=== PATIENT | male | born 1955 | race Caucasian/White ===

== ENCOUNTER 2018-10-24 19:00 | Emergency (ER) | payer OTHER ==
[~2018-10-24] VITALS: Ht 167.6 cm; Wt 75.3 kg
[~2018-10-24 19:00] MED LIST: AMLODIPINE BESY10 MG PO; FLAGYL250 MG PO; HYDRALAZINE HCL25 MG PO; LEVOTHYROXINE50 MCG PO; LISINOPRIL2.5 MG PO; METFORMIN HCL500 MG PO
[2018-10-24 20:19] LABS: BASOPHILS # (AUTO) 0.1 (0.0-0.1); BASOPHILS % 0.8 % (0.0-1.0); EOSINOPHILS # (AUTO) 0.3 (0.0-0.4); EOSINOPHILS % 2.8 % (0.0-6.0); HEMATOCRIT 37.1 % (38.2-49.6); HEMOGLOBIN 12.2 g/dL (14.0-18.0); LYMPHOCYTES # (AUTO) 1.7 (1.0-3.2); LYMPHOCYTES % 16.2 % (18.0-39.1); MEAN CORPUSCULAR HEMOGLOBIN 28.2 pg (28-32); MEAN CORPUSCULAR HGB CONC 32.9 g/dL (31-35); MEAN CORPUSCULAR VOLUME 85.9 fL (81-99); MONOCYTES # (AUTO) 0.7 (0.2-0.8); MONOCYTES % 6.5 % (4.4-11.3); NEUTROPHILS # (AUTO) 7.8 (2.1-6.9); NEUTROPHILS % 73.2 % (38.7-80.0); PLATELET COUNT 327 x10e3/uL (140-360); RED BLOOD COUNT 4.32 x10e6/uL (4.3-5.7); RED CELL DISTRIBUTION WIDTH 12.8 % (11.7-14.4)
[2018-10-24 20:38] LABS: ALBUMIN 4.2 g/dL (3.5-5.0); ALBUMIN/GLOBULIN RATIO 1.3 (0.8-2.0); ANION GAP 16.7 mmol/L (8-16); CALCIUM 8.7 mg/dL (8.4-10.2); CREATININE, SERUM 1.48 mg/dL (0.72-1.25); POTASSIUM 3.7 mmol/L (3.5-5.1)
[2018-10-24] MEDS ORDERED: DIATRIZOATE MEGL/DIATRIZOA SOD 30 ML BTL PO ONE (20:54)
[2018-10-24] MEDS ORDERED: SODIUM CHLORIDE 0.9% 1000ML 1,000 ML IV ONE (21:00)
--- NOTE | 2018-10-24 22:34 | Diagnostic Imaging Report ---
EXAM: CT ABDOMEN/PELVIS W DATE: 10/24/2018 8:49 PM INDICATION: Rectal bleeding, diarrhea COMPARISON: None TECHNIQUE: The abdomen and pelvis were scanned using a multidetector helical scanner. Coronal and sagittal reformations were obtained. CT low dose techniques were utilized, as applicable. IV Contrast: 100 ml Isovue 300/370 FINDINGS: LOWER THORAX: No consolidations LIVER/BILIARY: Probable hepatic steatosis. No masses. No ductal dilatation. GALLBLADDER: Unremarkable SPLEEN: Unremarkable PANCREAS: Unremarkable ADRENALS: Indeterminate bilateral adrenal nodules measuring up to 2 cm on the right and 1.2 cm on the left. KIDNEYS: Mild renal scarring. Incidental left renal cyst and bilateral too small to characterize hypodensities. No hydronephrosis. GI TRACT: Diverticulosis. No wall thickening or obstruction. Diffuse fluid filled colon extending to the rectum. VESSELS: Mild to moderate atherosclerotic changes. PERITONEUM/RETROPERITONEUM: No free air or fluid LYMPH NODES: No lymphadenopathy REPRODUCTIVE ORGANS/BLADDER: The lobe hypertrophy of the prostate. Mild circumferential bladder thickening could reflect chronic outlet obstruction SOFT TISSUES: Unremarkable BONES: No suspicious bone lesions. IMPRESSION: 1. Findings which can be seen with colitis. 2. Diverticulitis without acute diverticulitis. 3. Changes of BPH with findings suggestive of chronic bladder outlet obstruction. Signed by: Dr Mikayla Baker MD on 10/24/2018 10:31 PM
[2018-10-25] MEDS ORDERED: METRONIDAZOLE 500 MG TAB PO SCH (00:15)
[2018-10-25] MEDS ORDERED: CIPROFLOXACIN 500 MG TAB PO SCH (00:15)
[2018-10-25] MEDS ORDERED: IOPAMIDOL 370 MG/ML 200 ML INFUS..BTL INJ ONE (00:53)
[2018-10-25] MEDS ORDERED: SODIUM CHLORIDE 0.9% 50ML 50 ML ONE (00:53)
[2018-10-25 01:09] VITALS: BP 109/80
== END 2018-10-25 01:11 | disposition home or self-care (01) ==
LOC: ER 19:00
DX: R10.84 Generalized abdominal pain (principal); K52.9 Noninfective gastroenteritis and colitis, unspecified
CPT/HCPCS: 36415; 74177; 80053; 85025; 99283; J7030; Q9663; Q9967

== ENCOUNTER 2020-01-16 00:15 | Observation (INO) | payer MEDICARE, OTHER ==
[~2020-01-16] VITALS: Ht 167.6 cm; Wt 68.5 kg
[2020-01-16] VITALS (7 sets, daily range): BP systolic 114–144; BP diastolic 71–86
--- OUTSIDE RECORDS SUMMARY | 2020-01-16 00:18 | XMS REPORT ---
[facility] Address Unknown Phone Unavailable Care Team Providers Care Feed Adviser Name Role Phone Virgie JURADO Unavailable Unavailable Problems This patient has no known problems. Allergies, Adverse Reactions, Alerts This patient has no known allergies or adverse reactions. Medications This patient has no known medications. Results Test Description Test Time Test Comments Text Results Atomic Results Result Comments CT ABDOMEN/PELVIS W 2018-10-24 22:24:00 [place] [address] Patient Name: ENZO CELESTIN MR #: [id number] : 1955 Age/Sex: 63/M Req #: [id number] Adm Physician: Ordered by: SLICK JURADO MD Report #: [id number] Location: ER Room/Bed: Procedure: [id number] CT/CT ABDOMEN/PELVIS W Exam Date: Exam Time: REPORT STATUS: Signed EXAM: CT ABDOMEN/PELVIS W DATE: 10/24/2018 8:49 PM INDICATION: Rectal bleeding, diarrhea COMPARISON: None TECHNIQUE: The abdomen and pelvis were scanned using a multidetector helical scanner. Coronal and sagittal reformations were obtained. CT low dose techniques were utilized, as applicable. IV Contrast: 100 ml Isovue 300/370 FINDINGS: LOWER THORAX: No consolidations LIVER/BILIARY: Probable hepatic steatosis. No masses. No ductal dilatation. GALLBLADDER: Unremarkable SPLEEN: Unremarkable PANCREAS: Unremarkable ADRENALS: Indeterminate bilateral adrenal nodules measuring up to 2 cm on the right and 1.2 cm on the left. KIDNEYS: Mild renal scarring. Incidental left renal cyst and bilateral too small to characterize hypodensities. No hydronephrosis. GI TRACT: Diverticulosis. No wall thickening or obstruction. Diffuse fluid filled colon extending to the rectum. VESSELS: Mild to moderate atherosclerotic changes. PERITONEUM/RETROPERITONEUM: No free air or fluid LYMPH NODES: No lymphadenopathy REPRODUCTIVE ORGANS/BLADDER: The lobe hypertrophy of the prostate. Mild circumferential bladder thickening could reflect chronic outlet obstruction SOFT TISSUES: Unremarkable BONES: No suspicious bone lesions. IMPRESSION: 1. Findings which can be seen with colitis. 2. Diverticulitis without acute diverticulitis. 3. Changes of BPH with findings suggestive of chronic bladder outlet obstruction. Signed by: Dr Daphne Baker MD on 10/24/2018 10:31 PM Dictated By: DAPHNE BAKER MD 30 Transcribed By: MAGALY on 10/24/182230 COPY TO: SLICK JURADO MD
[2020-01-16 01:15] LABS: BASOPHILS % 0.5 % (0.0-1.0); EOSINOPHILS # (AUTO) 0.3 (0.0-0.4); EOSINOPHILS % 3.6 % (0.0-6.0); HEMOGLOBIN 11.5 g/dL (14.0-18.0); LYMPHOCYTES # (AUTO) 1.3 (1.0-3.2); LYMPHOCYTES % 15.7 % (18.0-39.1); MEAN CORPUSCULAR HEMOGLOBIN 28.5 pg (28-32); MEAN CORPUSCULAR HGB CONC 32.9 g/dL (31-35); MEAN CORPUSCULAR VOLUME 86.6 fL (81-99); MONOCYTES # (AUTO) 0.6 (0.2-0.8); MONOCYTES % 7.4 % (4.4-11.3); NEUTROPHILS # (AUTO) 5.9 (2.1-6.9); NEUTROPHILS % 72.4 % (38.7-80.0); PLATELET COUNT 331 x10e3/uL (140-360); RED BLOOD COUNT 4.04 x10e6/uL (4.3-5.7); RED CELL DISTRIBUTION WIDTH 13.6 % (11.7-14.4)
[2020-01-16 01:27] LABS: INR 0.87; PROTHROMBIN TIME 12.3 seconds (11.9-14.5)
[2020-01-16 01:28] LABS: PARTIAL THROMBOPLASTIN TIME 31.4 seconds (23.8-35.5)
[2020-01-16 01:37] LABS: ALBUMIN 3.9 g/dL (3.5-5.0); ALBUMIN/GLOBULIN RATIO 1.2 (0.8-2.0); ANION GAP 11.6 mmol/L (8-16); CALCIUM 8.8 mg/dL (8.4-10.2); CREATININE, SERUM 1.57 mg/dL (0.72-1.25); POTASSIUM 3.6 mmol/L (3.5-5.1)
[2020-01-16] MEDS: SODIUM CHLORIDE 0.9% 1000ML 1,000 ML IV SCH ×3 (03:40→20:14)
[2020-01-16] MEDS ORDERED: DEXTROSE 50% SYRINGE 50 ML IV PRN ×2 (03:45→18:30)
[2020-01-16] MEDS ORDERED: SIMVASTATIN40 MG PO (06:02)
--- NOTE | 2020-01-16 06:21 | NUR ---
NOTIFIED DR. Chani COLINDRES REGARDING CONSULT. NO NEW ORDER
--- NOTE | 2020-01-16 07:00 | NUR ---
BEDSIDE SHIFT REPORT RECEIVED FROM BRAKE RELINER NURSE. PT DENIES NEEDS AT THIS TIME.
[2020-01-16 07:25] LABS: HEMATOCRIT 34.9 % (38.2-49.6); HEMOGLOBIN 11.2 g/dL (14.0-18.0)
[2020-01-16 12:10] LABS: HEMOGLOBIN 10.7 g/dL (14.0-18.0)
[2020-01-16] MEDS ORDERED: PEG (High)/E-LYTE SOLN 4,000 ML BTL PO ONE (19:15)
[2020-01-16 19:52] LABS: HEMATOCRIT 32.3 % (38.2-49.6); HEMOGLOBIN 10.5 g/dL (14.0-18.0)
[2020-01-16] MEDS: HYDRALAZINE HCL 25 MG TAB PO SCH (20:10)
--- NOTE | 2020-01-16 20:36 | History and Physical ---
CHIEF COMPLAINT: Rectal bleeding. HISTORY OF PRESENT ILLNESS: A 64-year-old male, who has a history of hypertension, hypothyroidism, and type 2 diabetes including hyperlipidemia, reports having rectal bright red blood bleeding that began since Friday of this last week. The patient reports that when he uses the bathroom, he noticed some bright red blood. He said since then he has had multiple bright red blood per rectum. He denies any hemorrhoids. He did report having some black stool and he also reports having some Aleve taken at home occasion for pain. He denies using Aleve or any NSAIDs daily for chronic pain. Denies any hematemesis or hemoptysis. Denies any chest pain or any palpitations. No history of cardiac issues according to the patient. The patient is seen and evaluated at bedside on the medical floor. He is currently doing well with no other issues at this time. The patient reports he has never had a colonoscopy in the past. REVIEW OF SYSTEMS: Pertinent positive: Bright red blood per rectum, occasional black stool. The rest of 14-point review of systems are reviewed with the patient and are negative. ALLERGIES: NO KNOWN DRUG ALLERGIES. HOME MEDICATIONS: Metformin 500 mg p.o. b.i.d., amlodipine 10 mg daily, hydralazine 25 mg p.o. t.i.d., levothyroxine 50 mcg daily, lisinopril 5 mg daily, and simvastatin 40 mg daily. PAST MEDICAL HISTORY: Hypertension, type 2 diabetes, hypothyroidism, and hyperlipidemia. PAST SURGICAL HISTORY: Reports none. FAMILY HISTORY: Hypertension and diabetes. SOCIAL HISTORY: No drugs. No alcohol. Does not smoke. Good social support. PHYSICAL EXAMINATION: VITAL SIGNS: Temperature is 96.8, pulse is 79, respiratory rate is 18, blood pressure 134/74, and pulse ox 97% on room air. GENERAL: Not in acute distress. Alert and oriented x3. Cooperative on examination. HEENT: Head; normocephalic, atraumatic. Eyes; pupils are equal, round, and reactive to light bilaterally. Extraocular movements intact bilaterally. Throat; no evidence of erythema or exudates in the posterior pharynx. Has poor dentition. NECK: Supple. Good range of motion. PULMONARY: Clear to auscultation bilaterally. No wheezing, no rales, no rhonchi, no crackles appreciated. CARDIOVASCULAR: Positive S1 and S2. No murmurs, rubs, or gallops appreciated. ABDOMEN: Soft, nondistended, and nontender to palpation. Bowel sounds present. MUSCULOSKELETAL: Strength is 5/5 throughout. No evidence of any muscle deficits on examination. No weakness appreciated. NEUROLOGIC: Cranial nerves 2 through 12 grossly intact. No evidence of any neurological deficits on exam. SKIN: Intact. Warm to touch. Good cap refill. PSYCHIATRIC: Normal affect and mood. EXTREMITIES: No edema. Good range of motion throughout. LABORATORY FINDINGS: Show white count was 8.1, hemoglobin on admission 11.5, now down to 10.7, hematocrit is 33, platelets of 331, MCV is 86. Coagulation; PT 12, INR 0.87, and PTT 31.4. Chemistry; sodium 137, potassium 3.6, chloride 106, bicarb 23, anion gap of 11, BUN is 22, creatinine is 1.57, glucose is 164, and calcium is 8.8. Total bilirubin is 0.2, AST 13, ALT 10, and alkaline phosphatase 44. Total protein 7.1 and albumin 3.9. MICROBIOLOGY: None. IMAGING STUDIES: None. IMPRESSION: 1. Rectal bleeding, unknown etiology, could be secondary to hemorrhoids. 2. Hypertension. 3. Hyperlipidemia. 4. Hypothyroidism. 5. Type 2 diabetes. PLAN: At this time, his hemoglobin is stable. He is being monitored very closely. He is on IV Protonix. GI has been consulted. He is scheduled for colonoscopy, but may benefit from an EGD as well, as he reports occasional black stool, which could be likely lower GI bleeding more than upper, but we would like to see if GI would like to perform an upper EGD. He denies any abdominal pain or any gastritis. He does take Aleve at home. We are going to monitor his hemoglobin very closely. Resume same home medications. SCDs for DVT prophylaxis. Clear liquid diet and n.p.o. after midnight. MD MADELYN Dela Cruz/MODL /[id number]
--- NOTE | 2020-01-16 23:10 | NUR ---
DR. Chani COLINDRES DOING ROUND, NEW ORDERS RECEIVED. SEE EMR FOR LIST OF ORDERS
[2020-01-16] MEDS ORDERED: BISACODYL 5 MG TAB EC PO ONE ×2 (23:15→23:45)
[2020-01-17] VITALS (8 sets, daily range): BP systolic 119–143; BP diastolic 74–98
[2020-01-17] MEDS ORDERED: BISACODYL 5 MG TAB EC PO ONE (00:15)
[2020-01-17] MEDS: LEVOTHYROXINE SODIUM 50 MCG TAB PO SCH (05:08)
[2020-01-17 05:22] LABS: BASOPHILS % 0.5 % (0.0-1.0); EOSINOPHILS # (AUTO) 0.2 (0.0-0.4); EOSINOPHILS % 2.7 % (0.0-6.0); HEMATOCRIT 34.4 % (38.2-49.6); HEMOGLOBIN 10.9 g/dL (14.0-18.0); LYMPHOCYTES # (AUTO) 1.4 (1.0-3.2); LYMPHOCYTES % 19.5 % (18.0-39.1); MEAN CORPUSCULAR HGB CONC 31.7 g/dL (31-35); MEAN CORPUSCULAR VOLUME 88.4 fL (81-99); MONOCYTES # (AUTO) 0.5 (0.2-0.8); MONOCYTES % 6.7 % (4.4-11.3); NEUTROPHILS # (AUTO) 5.1 (2.1-6.9); NEUTROPHILS % 70.5 % (38.7-80.0); PLATELET COUNT 312 x10e3/uL (140-360); RED BLOOD COUNT 3.89 x10e6/uL (4.3-5.7); RED CELL DISTRIBUTION WIDTH 13.8 % (11.7-14.4)
[2020-01-17 05:42] LABS: ANION GAP 12.6 mmol/L (8-16); CALCIUM 9.4 mg/dL (8.4-10.2); CREATININE, SERUM 1.27 mg/dL (0.72-1.25); POTASSIUM 4.6 mmol/L (3.5-5.1)
[2020-01-17] MEDS ORDERED: CITRATE OF MAGNESIA 300ML BOTTLE PO ONE (06:00)
--- NOTE | 2020-01-17 07:00 | NUR ---
RECEIVED PATIENT AWAKE RESTING IN BED NO S/S OF DISTRESS. BED LOW, WHEELS LOCKED, SIDE RAILS X2, CALL LIGHT IN REACH WILL CONTINUE TO MONITOR PATIENT.
[2020-01-17] MEDS: SIMVASTATIN 40 MG TAB PO SCH (07:59)
[2020-01-17] MEDS: PANTOPRAZOLE 40 MG 10ML VIAL IV SCH (08:19)
[2020-01-17] MEDS: HYDRALAZINE HCL 25 MG TAB PO SCH ×3 (08:36→20:33)
[2020-01-17] MEDS: AMLODIPINE BESYLATE 10 MG TAB PO SCH (08:36)
[2020-01-17] MEDS: LISINOPRIL 2.5 MG TAB PO SCH (08:36)
[2020-01-17 12:02] LABS: HEMATOCRIT 34.6 % (38.2-49.6); HEMOGLOBIN 10.9 g/dL (14.0-18.0)
[2020-01-17] MEDS ORDERED: PROPOFOL IV EMULSION 10 MG/ML 50 ML VIAL ONE (14:08)
[2020-01-17] MEDS ORDERED: EPHEDRINE SULFATE INJ 50 MG/ML VIAL ONE (14:08)
[2020-01-17] MEDS ORDERED: MIDAZOLAM HCL 2 MG/2 ML VIAL ONE (14:18)
[2020-01-17] MEDS ORDERED: FENTANYL CITRATE/PF 100MCG/2 ML INJ ONE (14:18)
[2020-01-17] MEDS: SODIUM CHLORIDE 0.9% 1000ML 1,000 ML IV SCH (14:23)
--- NOTE | 2020-01-17 16:16 | NUR ---
PATIENT LEFT TO ENDOSCOPY AT THIS TIME VIA STRETCHER IN STABLE CONDITION.
--- NOTE | 2020-01-17 18:12 | NUR ---
PATIENT BACK FROM EGD AND COLONOSCOPY. NO S/S OF DISTRESS. PATIENT ON FULL LIQUID DIET. CALL LIGHT IN REACH, AT BEDSIDE, WILL CONTINUE TO MONITOR PATIENT.
[2020-01-17 18:57] LABS: HEMOGLOBIN 11.6 g/dL (14.0-18.0)
--- NOTE | 2020-01-17 19:17 | NUR ---
WALKING ROUNDS PERFORMED, RECEIVED PT LAYING SEMI FOWLERS IN BED, AAOX3, RR EVEN AND NON-LABORED, ON ROOM AIR. NO S/SX OF DISTRESS NOTED. LEFT PT LAYING SEMI FOWLERS IN BED, BED IN LOW LOCKED POSITION, SIDE RAILS UPX2, CALL LIGHT AND PHONE WITHIN REACH.
--- NOTE | 2020-01-17 20:01 | Operative Report ---
DATE OF PROCEDURE: 01/17/2020 SURGEON: Jake Roy MD PROCEDURES: EGD with biopsies and colonoscopy with hemoclipping. ADDITIONAL REFERRING PHYSICIAN: Dr. Webb. INDICATIONS FOR EGD: History of dark stools. INDICATION FOR COLONOSCOPY: Rectal bleeding. MEDICATIONS: The patient was done under MAC, please see anesthesiologist's note. PROCEDURE IN DETAIL: With the patient in the left lateral decubitus position, a flexible fiberoptic Olympus gastroscope was introduced into the esophagus under direct visualization without any difficulty. There was some short tongues of velvety red mucosa extending proximally from the GE junction and biopsies were obtained to rule out Lorenz. The scope was then advanced with ease into the stomach traversing a small hiatal hernia. Mucosa overlying the antrum and the body revealed some patchy erythema and [id number] edema, and biopsies were obtained and sent to stain for H. pylori. The pylorus was of normal contour and shape, was intubated with ease and the scope was advanced all the way to the second portion of the duodenum. Biopsies were obtained from approximately 3 mm nodule in the proximal second portion. Mucosa overlying the duodenal bulb grossly appeared to be within normal limits. The scope was then withdrawn back into the stomach and retroflexed, mucosa overlying the fundus and the cardia appeared to be within normal limits. The scope was then straightened out, it was subsequently withdrawn, and the patient tolerated the procedure well. IMPRESSION: 1. Rule out Lorenz esophagus. 2. Hiatal hernia. 3. Gastritis, biopsied, biopsies sent to stain for Helicobacter pylori. 4. Approximately 3 mm nodule, proximal second portion of duodenum, biopsied. PLAN: Follow up histology. Initiate Protonix 40 mg 1 p.o. q.a.m. before meals. The patient was then turned around and after adequate lubrication of the anal canal, a flexible fiberoptic Olympus colonoscope was inserted into the rectum with ease and advanced to the transverse colon. There was some blood the blood clots noted in the colon. Diverticular disease was also noted pretty much throughout. An actively bleeding diverticulum was noted in the mid transverse colon and site was hemoclipped x2 with size 16 hemoclips with excellent hemostasis. The scope was then advanced with ease all the way to the cecum, was then withdrawn slowly and whatever was visualized the mucosa overlying the cecum appeared to be within normal limits. Diverticular disease was scattered pretty much throughout the colon. The mucosa overlying the sigmoid and the rectum grossly appeared to be within normal limits. The scope was then retroflexed into the distal rectum and internal hemorrhoids were noted, none of which was actively bleeding. The scope was then straightened out, it was subsequently withdrawn, and the patient tolerated the procedure well. IMPRESSION: 1. Pandiverticulosis. 2. Blood and blood clots in the colon. 3. Actively bleeding diverticulum, transverse colon, hemoclipped x2 with excellent hemostasis. 4. Internal hemorrhoids, none actively bleeding. PLAN: Follow H and H. Initiate full liquid diet. Jake Roy MD [facility] [place] /[id number] cc: MD Melvi Mai MD
--- NOTE | 2020-01-17 20:07 | Progress Note ---
DATE: 01/17/2020 Medicine Progress Note SUBJECTIVE: The patient underwent status post EGD and colonoscopy today. He is currently doing well with no complaints. Hemoglobin is stable. PHYSICAL EXAMINATION: VITAL SIGNS: Temperature is 97.2, pulse 94, respiratory rate 16, blood pressure last recorded 93/48, and pulse ox 97% on room air. He is currently asymptomatic. GENERAL: Not in acute distress. Alert and oriented x3. Cooperative on examination. HEENT: Head; normocephalic, atraumatic. Eyes; pupils are equal, round, and reactive to light bilaterally. Extraocular movements intact bilaterally. Throat; no evidence of erythema or exudates in the posterior pharynx. Has poor dentition. NECK: Supple. Good range of motion. PULMONARY: Clear to auscultation bilaterally. No wheezing, no rales, no rhonchi, no crackles appreciated. CARDIOVASCULAR: Positive S1 and S2. No murmurs, rubs, or gallops appreciated. ABDOMEN: Soft, nondistended, and nontender to palpation. Bowel sounds present. MUSCULOSKELETAL: Strength is 5/5 throughout. No evidence of any muscle deficits on examination. No weakness appreciated. NEUROLOGIC: Cranial nerves 2 through 12 grossly intact. No evidence of any neurological deficits on exam. SKIN: Intact. Warm to touch. Good cap refill. PSYCHIATRIC: Normal affect and mood. EXTREMITIES: No edema. Good range of motion throughout. LABORATORY DATA: Show white count of 7.3, hemoglobin 10.9, hematocrit is 35, and platelets of 312. Chemistry; sodium 145, potassium 4.6, chloride 111, bicarb 26, anion gap of 12, BUN is 13, creatinine is 1.27, and calcium is 9.4. MICROBIOLOGY: None. IMAGING STUDIES: EGD shows distal esophagitis, rule out Lorenz, hiatal hernia, gastric body polyps, and a nodule in the second portion of the duodenum. Colonoscopy showed diverticulosis, pandiverticulosis with active bleeding, diverticulum, transverse colon clip x2, and large internal hemorrhoids. IMPRESSION: 1. Rectal bleeding, status post colonoscopy that shows pandiverticulosis with a bleeding diverticulum, status post colon clips x2 with a large internal hemorrhoid. 2. Status post EGD that showed distal esophagitis, hiatal hernia and gastric polyps, and a nodule in the second portion of duodenum. 3. Hypertension. 4. Hypothyroidism. 5. Hyperlipidemia. 6. Type 2 diabetes. PLAN: At this time, EGD and colonoscopy results above. He is on a clear liquid diet and diet advance will be per GI. We discussed the EGD and colonoscopy results with the patient and the family. He does need a repeat colonoscopy and EGD in 3 years' time. Resume same plan of care. Hold anticoagulation for now. He is on a clear liquid diet. Get a.m. labs. MD MADELYN Dela Cruz/MODL /[id number]
[2020-01-18 00:07] VITALS: BP 131/81
[2020-01-18 04:25] VITALS: BP 108/70
[2020-01-18] MEDS: LEVOTHYROXINE SODIUM 50 MCG TAB PO SCH (05:16)
[2020-01-18 05:37] LABS: BASOPHILS # (AUTO) 0.1 (0.0-0.1); BASOPHILS % 0.6 % (0.0-1.0); EOSINOPHILS # (AUTO) 0.3 (0.0-0.4); EOSINOPHILS % 3.2 % (0.0-6.0); HEMATOCRIT 32.6 % (38.2-49.6); HEMOGLOBIN 10.4 g/dL (14.0-18.0); LYMPHOCYTES # (AUTO) 1.4 (1.0-3.2); LYMPHOCYTES % 16.9 % (18.0-39.1); MEAN CORPUSCULAR HEMOGLOBIN 28.2 pg (28-32); MEAN CORPUSCULAR HGB CONC 31.9 g/dL (31-35); MEAN CORPUSCULAR VOLUME 88.3 fL (81-99); MONOCYTES # (AUTO) 0.7 (0.2-0.8); MONOCYTES % 8.3 % (4.4-11.3); NEUTROPHILS # (AUTO) 5.7 (2.1-6.9); NEUTROPHILS % 70.6 % (38.7-80.0); PLATELET COUNT 307 x10e3/uL (140-360); RED BLOOD COUNT 3.69 x10e6/uL (4.3-5.7); RED CELL DISTRIBUTION WIDTH 13.8 % (11.7-14.4)
[2020-01-18 06:00] LABS: ANION GAP 11.1 mmol/L (8-16); CALCIUM 8.9 mg/dL (8.4-10.2); CREATININE, SERUM 1.27 mg/dL (0.72-1.25); POTASSIUM 4.1 mmol/L (3.5-5.1)
--- NOTE | 2020-01-18 07:00 | NUR ---
RECEIVED PATIENT AWAKE RESTING IN BED NO S/S OF DISTRESS. BED LOW, WHEELS LOCKED, SIDE RAILS X2, CALL LIGHT IN REACH WILL CONTINUE TO MONITOR PATIENT.
[2020-01-18 07:47] VITALS: BP 120/86
[2020-01-18 07:49] VITALS: BP 120/86
[2020-01-18] MEDS: AMLODIPINE BESYLATE 10 MG TAB PO SCH (08:00)
[2020-01-18] MEDS: PANTOPRAZOLE 40 MG 10ML VIAL IV SCH (08:00)
[2020-01-18] MEDS: HYDRALAZINE HCL 25 MG TAB PO SCH ×2 (08:00→14:14)
[2020-01-18] MEDS: SIMVASTATIN 40 MG TAB PO SCH (08:00)
[2020-01-18] MEDS: LISINOPRIL 2.5 MG TAB PO SCH (08:00)
[2020-01-18 12:16] VITALS: BP 114/74
[2020-01-18 16:33] VITALS: BP 109/82
[2020-01-18] MEDS ORDERED: PANTOPRAZOLE SO40 MG PO (17:47)
--- NOTE | 2020-01-18 17:55 | NUR ---
REMOVED PATIENTS IV. CATHETER TIP INTACT AND PRESSURE DRESSING APPLIED.
--- NOTE | 2020-01-18 17:58 | NUR ---
PATIENT DISCHARGED FROM FACILITY. PATIENT GATHERED ALL PERSONAL BELONGINGS, DISCHARGE INSTRUCTIONS, AND FOLLOW UP INFORMATION. PATIENT LEFT UNIT IN WHEELCHAIR AND WENT HOME VIA PRIVATE AUTO. NO S/S OF DISTRESS LEAVING FACILITY.
--- NOTE | 2020-01-18 21:57 | Discharge Summary ---
FINAL DISCHARGE DIAGNOSES: 1. Rectal bleeding, status post colonoscopy that showed pandiverticulosis with bleeding diverticulum, status post colon clips x2 with a large internal hemorrhoid. 2. Status post EGD showed distal esophagitis, hiatal hernia, and gastric polyps and a nodule in the second portion of duodenum. 3. Hypertension. 4. Hypothyroidism. 5. Hyperlipidemia. 6. Type 2 diabetes. CONSULTANTS: GI. PHYSICAL EXAMINATION: VITAL SIGNS: Temperature is 98.1, pulse 76, respiratory rate is 16, blood pressure 109/82, and pulse ox 97% on room air. LABORATORY FINDINGS: Show white count was 8.3, hemoglobin on admission was 11.5, downtrended to 10.4 prior to being discharged, hematocrit is 32.6, and platelets of 307. Chemistry; sodium 140, potassium 4.1, chloride 108, bicarb 25, anion gap is 11, BUN is 13, creatinine is 1.27, glucose is 105, and calcium is 8.9. LFTs within normal range. Albumin was 3.9. Coagulation; PT 12, INR 0.87, and PTT 31.4. MICROBIOLOGY: None. IMAGING STUDIES: None. HOSPITAL COURSE: A 64-year-old male came into the ED with complaints of underlying rectal bleeding, prompting GI consultation. The patient's hemoglobin maintained stable, did not require any blood transfusion. Of note, the patient underwent status post colonoscopy that shows pandiverticulosis with bleeding diverticulum, status post colon clips x2 were performed with a large internal hemorrhoid seen and also, the patient underwent status post EGD that showed distal esophagitis, hiatal hernia, gastric polyps, and a nodule in the second portion of the duodenum, but no active bleeding seen. The patient did well postprocedurally with no complaints. He was started on oral Protonix. He was tolerating diet well with no complaints. He has been cleared for discharge by GI. On the day of discharge, vital signs were stable, labs reviewed and stable. The patient is seen and evaluated, and examined thoroughly on the day of discharge. No other complaints. The patient verbalized understanding and agrees to plan of care to follow up as an outpatient with the primary care physician in one week and GI specialist in 1 to 2 weeks' time for biopsy results. MEDICATIONS: See medication reconciliation form. DISPOSITION: Home. CONDITION: Stable. DIET: Heart healthy. In the event of any worsening symptoms, the patient was advised to come back to the ED for further evaluation. Discharge summary took greater than 35 minutes. MD MADELYN Dela Cruz/MODL /[id number]
== END 2020-01-18 18:07 | disposition home or self-care (01) ==
LOC: ER 00:15 → ERHOLD 04:04 → INTOOBSV 04:04 → MED/SURG 05:15
PROVIDERS: ADMIT Internal Medicine; ATTEND Internal Medicine
DX: K57.31 Diverticulosis of large intestine without perforation or abscess with bleeding (principal); E11.9 Type 2 diabetes mellitus without complications; E78.5 Hyperlipidemia, unspecified; E03.9 Hypothyroidism, unspecified; K20.9 Esophagitis, unspecified; K44.9 Diaphragmatic hernia without obstruction or gangrene; K64.9 Unspecified hemorrhoids; K31.7 Polyp of stomach and duodenum
CPT/HCPCS: 36415 ×2; 43239; 45382; 45384; 80048 ×2; 80053; 82948 ×3; 85014 ×2; 85018 ×2; 85025 ×3; 85610; 85730; 86850; 86900; 88305; 88312; 99284; C9113 ×2; G0378 ×3; J2250; J2704; J3010; J7030 ×2; 45378